=== PATIENT | female | born 1955 | race Caucasian/White ===

== ENCOUNTER 2017-02-08 12:18 | Outpatient (CLI) | payer MEDICARE, MEDICAID ==
[~2017-02-08 12:18] MED LIST: AMBIEN5 MG ORAL; CYMBALTA30 MG ORAL; EFFEXOR XR75 MG ORAL; METHADONE HCL10 MG PO; MIRTAZAPINE15 MG ORAL; REMERON15 MG ORAL; RESTORIL7.5 MG ORAL; XANAX1 MG ORAL
--- NOTE | 2017-02-08 14:39 | Diagnostic Imaging Report ---
Indication: PAIN cough Technique: 2 views of the chest Comparison: 10/21/2015 Findings: Lungs and pleural spaces are clear. Heart size is normal. Impression: No acute process
== END 2017-02-08 14:18 | disposition home or self-care (01) ==
LOC: RAD 12:18
DX: Z01.818 Encounter for other preprocedural examination (principal); R05 Cough
CPT/HCPCS: 71020